=== PATIENT | male | born 2000 | race Caucasian/White ===

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

== ENCOUNTER 2018-11-29 09:59 | Emergency (ER) | payer BC ==
[2018-11-29] MEDS ORDERED: Ondansetron 4 MG/2 ML SDV IVPUSH ONE (10:14)
[2018-11-29] MEDS ORDERED: Sodium Chloride 0.9% 1,000 ML IV ONE (10:14)
--- NOTE | 2018-11-29 10:56 | EDM.PDOC ---
ED HPI GENERAL MEDICAL PROBLEM - General Chief Complaint: Gastrointestinal Problem Stated Complaint: VOMITING AND LIGHTHEADED Time Seen by Provider: 11/29/18 10:40 Source of Information: Reports: Patient History Limitations: Reports: No Limitations - History of Present Illness INITIAL COMMENTS - FREE TEXT/NARRATIVE: Patient states that he awoke from sleep around 0430 hrs. with acute onset of nausea and vomiting. He indicates the first 3 emesis contained food eaten for supper last night which was fish and chips from [employer]. After this emesis is been bilious but nothing will stay down. Associated feeling of fever with chills. Some diffuse epigastric abdominal discomfort not radiating through to his back. No recent heavy alcohol use. No previous abdominal surgery. No diarrhea. Nurses have gone ahead and started him on IV normal saline at open and have given him Zofran 4 mg IV for nausea and he is starting to feel improved at the time of my exam. Onset: Today Onset Date: 11/29/18 Onset Time: 04:30 Duration: Hour(s): Location: Reports: Abdomen Quality: Reports: Ache (Epigastric pain with recurrent nausea and vomiting since 4:30 this morning) Severity: Moderate Improves with: Reports: None Worsens with: Reports: Other Context: Reports: Other. Denies: Activity (Trying to drink.), Exercise, Lifting , Sick Contact, Trauma Associated Symptoms: Reports: Loss of Appetite, Malaise, Nausea/Vomiting. Denies: Confusion, Chest Pain, Cough, cough w sputum, Diaphoresis, Fever/Chills , Headaches, Rash, Seizure (Intractable nausea and vomiting since 0430 hrs. this morning), Shortness of Breath, Syncope Treatments DIV[employer]PERATIONS SPECIALIST: Reports: Other (see below) (None.) - Related Data Allergies Allergy/AdvReac Type Severity Reaction Status Date / Time No Known Allergies Allergy Verified 11/29/18 10:12 Home Meds: Home Meds Dicyclomine [Bentyl] 20 mg PO Q6H PRN #5 tablet 11/29/18 [Rx] Ondansetron [Zofran] 4 mg BUCCAL Q6H PRN #5 tab 11/29/18 [Rx] Past Medical History - Past Health History Medical/Surgical History: Denies Medical/Surgical History Social & Family History - Tobacco Use Smoking Status *Q: Never Smoker - Caffeine Use Caffeine Use: Reports: None - Recreational Drug Use Recreational Drug Use: No - Living Situation & Occupation Living situation: Reports: Single, with Family Occupation: Student ED ROS GENERAL - Review of Systems Review Of Systems: See Below Constitutional: Reports: No Symptoms HEENT: Reports: No Symptoms Respiratory: Reports: No Symptoms Cardiovascular: Reports: No Symptoms Endocrine: Reports: No Symptoms GI/Abdominal: Reports: No Symptoms : Reports: No Symptoms Musculoskeletal: Reports: No Symptoms Skin: Reports: No Symptoms Neurological: Reports: No Symptoms Psychiatric: Reports: No Symptoms Hematologic/Lymphatic: Reports: No Symptoms Immunologic: Reports: No Symptoms ED EXAM, GI/ABD - Physical Exam Exam: See Below Exam Limited By: No Limitations General Appearance: Alert, WD/WN, No Apparent Distress, Other (Does not feel warm to palpation. Nurses report temperature 37.2. Pulse is 83 and sinus respiratory of 18. BP is slightly elevated 141/86. Sats are 100% on room air.) Eyes: Bilateral: Normal Appearance (No scleral icterus.) Throat/Mouth: Other Head: Atraumatic, Normocephalic (Mouth is mildly dry and tongue is coated.) Neck: Normal Inspection, Supple, Non-Tender, Full Range of Motion. No: Lymphadenopathy (L), Lymphadenopathy (R) Respiratory/Chest: No Respiratory Distress, Lungs Clear, Normal Breath Sounds, No Accessory Muscle Use Cardiovascular: Normal Peripheral Pulses, Regular Rate, Rhythm, No Edema, No Gallop, No Murmur, No Rub GI/Abdominal Exam: Tender (Bowel sounds are fairly quiet sent in all 4 quadrants.), Abnormal Bowel Sounds, Other. No: Guarding ( Mild tenderness in the epigastrium.), Rigid, Rebound (Male) Exam: No Hernia (No peritoneal signs.) Back Exam: Normal Inspection, Full Range of Motion. No: CVA Tenderness (L) Extremities: Normal Inspection, Normal Range of Motion, Non-Tender, Normal Capillary Refill Neurological: Alert, Oriented, CN II-XII Intact, Normal Cognition Psychiatric: Normal Affect, Normal Mood Skin Exam: Warm, Dry, Intact, Normal Color, No Rash Course - Vital Signs Last Recorded V/S: Last Vital Signs Temp 37.2 C 11/29/18 10:08 Pulse 83 11/29/18 10:08 Resp 18 11/29/18 10:08 BP 141/86 H 11/29/18 10:08 Pulse Ox 100 11/29/18 10:08 Orthostatic Blood Pressure [ 129/83 Standing] Orthostatic Blood Pressure [ 138/83 Supine] - Orders/Labs/Meds Labs: Laboratory Tests 11/29/18 11/29/18 Range/Units 10:15 10:15 WBC 12.36 H (4.23-9.07) K/mm3 RBC 5.71 (4.63-6.08) M/mm3 Hgb 17.2 D (13.7-17.5) gm/L Hct 48.8 (40.1-51.0) % MCV 85.5 (79.0-92.2) fl MCH 30.1 (25.7-32.2) pg MCHC 35.2 (32.2-35.5) g/dl RDW Std Deviation 39.4 (35.1-43.9) fL Plt Count 175 (163-337) K/mm3 MPV 10.6 (9.4-12.3) fl Neut % (Auto) 89.4 H (34.0-67.9) % Lymph % (Auto) 3.4 L (21.8-53.1) % Converse % (Auto) 6.5 (5.3-12.2) % Eos % (Auto) 0.3 L (0.8-7.0) Baso % (Auto) 0.1 (0.1-1.2) % Neut # (Auto) 11.05 H (1.78-5.38) K/mm3 Lymph # (Auto) 0.42 L (1.32-3.57) K/mm3 Converse # (Auto) 0.80 (0.30-0.82) K/mm3 Eos # (Auto) 0.04 (0.04-0.54) K/mm3 Baso # (Auto) 0.01 (0.01-0.08) K/mm3 Manual Slide Review Abnormal smear Sodium 141 (136-145) mEq/L Potassium 3.9 (3.5-5.1) mEq/L Chloride 104 (98-107) mEq/L Carbon Dioxide 27 (21-32) mEq/L Anion Gap 13.9 (5-15) BUN 21 H (7-18) mg/dL Creatinine 1.1 (0.7-1.3) mg/dL Est Cr Clr Drug Dosing 135.00 mL/min Estimated GFR (MDRD) > 60 (>60) mL/min BUN/Creatinine Ratio 19.1 H (14-18) Glucose 118 H (74-106) mg/dL Calcium 9.6 (8.5-10.1) mg/dL Total Bilirubin 0.7 (0.2-1.0) mg/dL AST 23 (15-37) U/L ALT 28 (16-63) U/L Alkaline Phosphatase 85 (46-116) U/L C-Reactive Protein < 0.2 (<1.0) mg/dL Total Protein 7.6 (6.4-8.2) g/dl Albumin 4.5 (3.4-5.0) g/dl Globulin 3.1 gm/dL Albumin/Globulin Ratio 1.5 (1-2) Meds: Medications Discontinued Medications Generic Name Dose Route Start Last Admin Trade Name Freq PRN Reason Stop Dose Admin Dicyclomine HCl 10 mg 11/29/18 11:29 11/29/18 11:33 Bentyl PO 11/29/18 11:30 10 mg ONETIME ONE Administration Sodium Chloride 1,000 mls @ 999 mls/hr 11/29/18 10:14 11/29/18 10:18 Normal Saline IV 11/29/18 11:14 999 mls/hr ONETIME ONE Administration Ondansetron HCl 4 mg 11/29/18 10:14 11/29/18 10:18 Zofran IVPUSH 11/29/18 10:15 4 mg ONETIME ONE Administration - Radiology Interpretation Free Text/Narrative:: 18-year-old male presents to the ED with acute onset of nausea vomiting initially of fluid content that ED for supper times the first 3 emeses and then bilious emesis since without any hematemesis. No associated development of diarrhea. He reports feeling chilled and feverish. Temperature is reportedly 37.2 he does not feel that warm to palpation. Benign abdominal exam. Suspect viral gastritis. IV normal saline at open. Zofran 4 mg IV. - Re-Assessments/Exams Free Text/Narrative Re-Assessment/Exam: 11/29/18 10:59 Labs reveal a white count of 12.36 with 89.4% neutrophils on the auto differential. Hemoglobin is 17.2 with hematocrit of 48.8 indicating some degree of hemoconcentration. Platelet count is normal at 175,000. His lymph count is 3.4% which is very low. Sodium 141 with potassium of 3.9. Chloride 104 the bicarbonate 27. And a gap is 13.9. BUN is 21 with a creatinine of 1.1. GFR remains greater than 60. BUN/creatinine ratio is 19.1 mildly elevated. Calcium is 9.6. Liver function normal. C-reactive protein less than 0.2. Total protein 7.6 with an albumin fraction of 4.5 11/29/18 11:34 he has tolerated oral fluids i.e. Gatorade and some crackers without issue. Will be discharged home to continue clear fluids and advance diet as tolerated. Zofran 4 mg under the tongue every 4-6 hours needed for relief of nausea and vomiting. Recommended that he take a tablet at 1600 hrs. today and then will adopt a wait and see approach. Bentyl 20 mg every 6 hours needed for relief of abdominal pain. Follow-up as necessary. Departure - Departure Time of Disposition: 11:56 Disposition: Home, Self-Care 01 Condition: Fair Clinical Impression: Viral gastritis, Nausea and vomiting in adult patient - Discharge Information *PRESCRIPTION DRUG MONITORING PROGRAM REVIEWED*: Not Applicable *COPY OF PRESCRIPTION DRUG MONITORING REPORT IN PATIENT KARINA: Not Applicable Prescriptions: Dicyclomine [Bentyl] 20 mg PO Q6H PRN #5 tablet PRN Reason: Abdominal cramps/diarrhea Ondansetron [Zofran] 4 mg BUCCAL Q6H PRN #5 tab PRN Reason: nausea or vomiting Instructions: Viral Gastroenteritis, Adult, [id number], Nausea and Vomiting, Adult Referrals: PCP,Not In Area [Primary Care Provider] - Forms: ED Department Discharge Additional Instructions: Evaluation the emergency room today in regards to development of acute onset of nausea and vomiting at 0430 hrs. this morning. Appears to be little chance for food poisoning. Appears that this is most likely viral in origin. Lab work did not show anything significant. You're treated with a liter of IV fluids to improve your hydration and mild dehydration. Zofran 4 mg IV stopped vomiting. He met at home is clear fluids such as Gatorade/Powerade 5-6 ounces sipped per hour for the next 16 hours. When hungry try soda crackers. If they are tolerated you may use GM on toast or white bread. Jell-O is okay at any time. For supper you may want to try soup such as turkey rice/chicken noodle. Suggest taking a Zofran tablet under the tongue at 4:00 this afternoon to prevent further nausea or vomiting. May be used every 4 hours as needed if you feel nauseated or develop vomiting. Avoid all dairy products and no apple or grape juice until tomorrow when you know for sure you're not going to develop any diarrhea. You are given Bentyl 20 mg by mouth before leaving the ED and this may be repeated every 6 hours with the next dose potentially due at 5:30 this afternoon if needed for abdominal pain.
[2018-11-29] MEDS ORDERED: Dicyclomine 10 MG Cap PO ONE (11:29)
== END 2018-11-29 12:05 | disposition home or self-care (01) ==
LOC: JD.ED 09:59
DX: A08.4 Viral intestinal infection, unspecified (principal)
CPT/HCPCS: 36415; 80053; 85025; 86140; 96374; 99284; A9270; J2405; J7040